=== PATIENT | female | born 2000 ===

== ENCOUNTER 2019-03-10 05:05 | Inpatient (IN) | payer OTHER ==
[2019-03-10] MEDS ORDERED: AMPICILLIN/NS 2 GM/100 ML 2 GM/100 ML BAG IV ONE (05:51)
[2019-03-10] MEDS ORDERED: BRETHINE SUB-Q PRN (05:51)
[2019-03-10] MEDS ORDERED: XYLOCAINE 2% INFILTRATI ONE (05:51)
[2019-03-10] MEDS ORDERED: SUBLIMAZE IV PRN (05:51)
[2019-03-10] MEDS ORDERED: LACTATED RINGERS 1,000 ML IV SCH (06:00)
[2019-03-10] MEDS ORDERED: PITOCin/NS 20 UNIT/1000ML DRIP 20 UNITS/1,000 ML BAG IV SCH (06:00)
--- NOTE | 2019-03-10 06:02 | History and Physical Report ---
History of Present Illness Date of examination: 03/10/19 Date of admission: 03/10/2019 Chief complaint: Leaking of water from vagina. History of present illness: 18 year old presents to L&D complaining of leaking of water from vagina since 04:50 this AM. Fluid clear. No vaginal bleeding. Patient received care at [facility] and records are available. significant for late presentation for care, anemia, and rubella nonimmune. labs are as follows: O+, antibody screen negative, rubella nonimmune, RPR nonreactive, HIV negative, hepatitis B surface antigen negative, chlamydia negative, gonorrhea negative, 1 hour sugar test 98, HSV 1 serology positive, HSV 2 serology negative. No GBS result noted on chart. 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 denies: smoking, alcohol abuse, prescription drug abuse, IV drug use - Obstetrical History Expected Date of Delivery: 03/30/19 Actual Gestation: 37 Week(s) 1 Day(s) : 1 Para: 0 Hx # Term Pregnancies: 0 Number of Pregnancies: 0 Spontaneous Abortions: 0 Induced : 0 Number of Living Children: 0 Medications and Allergies Allergies Allergy/AdvReac Type Severity Reaction Status Date / Time No Known Allergies Allergy Unverified 03/10/19 05:44 Home Medications Medication Instructions Recorded Confirmed Last Taken Type No Known Home Medications [No 03/10/19 03/10/19 Unknown History Reported Home Medications] Active Meds: Active Medications Ephedrine Sulfate (Ephedrine Sulfate) 10 mg IV Q2M PRN PRN Reason: Hypotension Fentanyl (Sublimaze) 100 mcg IV Q2H PRN PRN Reason: Labor Pain Oxytocin/Sodium Chloride (Pitocin/Ns 20 Unit/1000ml Drip) 20 units in 1,000 mls @ 125 mls/hr IV DIRECT SRAVAN Lactated Ringer's (Lactated Ringers) 1,000 mls @ 125 mls/hr IV DIRECT SRAVAN Ampicillin Sodium (Ampicillin/Ns 2 Gm/100 Ml) 2 gm in 100 mls @ 100 mls/hr IV ONCE ONE; Protocol Stop: 03/10/19 06:50 Terbutaline Sulfate (Brethine) 0.25 mg SUB-Q ONCE PRN PRN Reason: Hyperstimulation/Hypertonicity Review of Systems All systems: negative (leaking of water and contractions) - Vital Signs Vital signs: Vital Signs Pulse BP 94 H 119/79 03/10/19 05:49 03/10/19 05:49 Temp Pulse Resp BP Pulse Ox 94 H 119/79 03/10/19 05:49 03/10/19 05:49 - Physical Exam Abdomen: Positive: normal appearance, soft. Negative: distention, tenderness, guarding, rigidity Genitourinary (Female): Positive: normal external genitalia, normal perenium. Negative: perineal/vulvar lesions Vagina: Positive: other (clear fluid) Uterus: Positive: enlarged (s=d) Extremities: Positive: normal. Negative: tenderness, edema - Obstetrical FHR: category 1 Uterine Contraction Monitor Mode: External Cervical Dilatation: 3.5 Cervical Effacement Percentage: 90 station: -3 Uterine Contraction Pattern: Regular Uterine Contraction Intensity: Moderate Results All other labs normal. Assessment and Plan A: at 37 weeks, 1 day gestation. Labor. SROM. GBS unknown. P: Admit. GBS prophylaxis. EFM. Anticipate vaginal .
[2019-03-10] MEDS: LACTATED RINGERS 1,000 ML IV SCH ×2 (06:15→07:36)
[2019-03-10 06:30] LABS: Hematocrit 39.7 % (30.3-42.9); Hemoglobin 13.4 gm/dl (10.1-14.3); Mean Corpuscular HGB Conc 34 % (30-34); Mean Corpuscular Volume 85 fl (79-97); Platelet Count 251 K/mm3 (140-440); Red Blood Count 4.66 M/mm3 (3.65-5.03); Red Cell Distribution Width 13.8 % (13.2-15.2)
[2019-03-10] MEDS ORDERED: NARCAN 2 MG/2 ML IV PRN (09:10)
[2019-03-10] MEDS ORDERED: fentaNYL-BUPIV 2 MCG/ML-0.125% 200 MCG/100 ML BAG EPIDURAL SCH (10:00)
[2019-03-10] MEDS: AMPICILLIN/NS 1 GM/50 ML 1 GM/50 ML BAG IV SCH ×2 (10:09→14:12)
--- NOTE | 2019-03-10 10:50 | Event Note ---
Date: 03/10/19 Brief variable FHR decelerations noted. Moderate FHR variability and normal baseline FHR. IUPC inserted; amnioinfusion ordered. Cervix is now 5.5/100/-1. Fluid remains clear. Patient positioned in lateral position. VSS.
[2019-03-10] MEDS ORDERED: NACL 0.9% 1000 ML 1,000 ML VG SCH (11:00)
--- NOTE | 2019-03-10 12:12 | Event Note ---
Date: 03/10/19 SVE 9/0.
[2019-03-10] MEDS ORDERED: TYLENOL PO PRN (13:58)
[2019-03-10] MEDS ORDERED: MILK OF MAGNESIA PO PRN (14:59)
[2019-03-10] MEDS ORDERED: LANSINOH TP PRN (14:59)
[2019-03-10] MEDS ORDERED: TUCKS PAD TP PRN (14:59)
[2019-03-10] MEDS ORDERED: SODIUM CHLORIDE FLUSH SYRINGE 10 ML IV NR (15:00)
--- NOTE | 2019-03-10 15:20 | Procedure Note ---
OB Delivery Note - Delivery Date of Delivery: 03/10/19 Surgeon: CLAUDY AMADOR Estimated blood loss: 200cc - Vaginal Delivery presentation: vertex Delivery position: OA Intrapartum events: none Delivery induction: none Delivery monitor: external FHT, external uterine, internal uterine Route of delivery: Delivery placenta: spontaneous Delivery cord: 3 umbilical vessels Episiotomy: none Delivery laceration: 2nd degree Delivery repair: vicryl Anesthesia: epidural Delivery comments: Spontaneous vaginal delivery at 14:13 of liveborn female infant weighing 6 lb. 12 oz. over 2nd degree midline perineal/vaginal laceration with apgars of 8/9. Epidural anesthesia. Baby placed immediately skin to skin with mom after . Spontaneous cry and respirations. Baby dried and suctioned with bulb. 3 vessel cord double clamped and cut. Cord blood obtained. Spontaneous delivery of intact placenta and membranes by gillespie mechanism. EBL 200 cc. Pitocin to IV fluids after delivery of placenta. Fundus firm and midline below umbilicus. 2nd degree perineal/vaginal laceration repaired with 2-0 vicryl. No other lacerations noted. Vaginal sweep negative. Sponge count correct. Mother and baby stable in birthing room.
[2019-03-10] MEDS: NORCO 5/325 PO PRN (17:18)
[2019-03-10] MEDS: IBUPROFEN PO SCH (17:18)
[2019-03-10] MEDS ORDERED: DERMOPLAST TP PRN (19:24)
[2019-03-10] MEDS: COLACE PO SCH (22:58)
[2019-03-11 04:18] LABS: Hematocrit 29.6 % (30.3-42.9); Hemoglobin 9.8 gm/dl (10.1-14.3)
[2019-03-11] MEDS: NORCO 5/325 PO PRN (04:44)
[2019-03-11] MEDS: IBUPROFEN PO SCH (05:49)
--- NOTE | 2019-03-11 12:18 | Progress Note ---
Assessment and Plan A: day 1 S/P spontaneous vaginal delivery. Anemia secondary to and blood loss. P: Supplement with iron. Continue current management. Subjective - Subjective Date of service: 03/11/19 Principal diagnosis: day 1 S/P Interval history: day 1 S/P spontaneous vaginal delivery. Doing well. Patient reports small amount of lochia. Voiding without difficulty; ambulating well; tolerating a regular diet without nausea or vomiting. Patient denies headache, chest pain, cough, shortness of breath, abdominal pain, or leg pain. Patient reports: appetite normal, voiding normally, pain well controlled, flatus, ambulating normally, no dizzy ambulation, no nauseated [place]: doing well Objective - Vital Signs Latest vital signs: Vital Signs Temp Pulse Resp BP BP Pulse Ox 03/11/19 08:57 97.9 F 87 20 99/53 99 03/10/19 23:14 98.2 F 99 H 20 108/50 97 03/10/19 19:57 98.8 F 90 20 122/70 96 03/10/19 16:56 97.9 F 93 H 18 130/75 03/10/19 16:15 105 H 96 03/10/19 16:10 102 H 97 03/10/19 16:05 101 H 97 03/10/19 16:00 109 H 98 03/10/19 15:59 104 H 124/75 03/10/19 15:55 105 H 98 03/10/19 15:50 101 H 96 03/10/19 15:45 110 H 97 03/10/19 15:40 101 H 99 03/10/19 15:35 96 H 97 03/10/19 15:30 95 H 97 03/10/19 15:29 97 H 134/76 03/10/19 15:25 104 H 98 03/10/19 15:20 102 H 98 03/10/19 15:15 107 H 97 03/10/19 15:10 112 H 97 03/10/19 15:05 117 H 96 03/10/19 15:00 113 H 127/90 97 03/10/19 14:55 114 H 98 03/10/19 14:50 106 H 98 03/10/19 14:45 110 H 98 03/10/19 14:40 117 H 97 03/10/19 14:35 98.7 F 109 H 97 03/10/19 14:30 120 H 130/63 97 03/10/19 14:25 124 H 98 03/10/19 14:20 118 H 96 03/10/19 14:17 125 H 94 03/10/19 14:15 145 H 95 03/10/19 14:10 136 H 97 03/10/19 14:05 162 H 96 03/10/19 14:01 163 H 93 03/10/19 14:00 100.3 F H 150 H 96 03/10/19 13:55 131 H 96 03/10/19 13:50 118 H 96 03/10/19 13:45 110 H 96 03/10/19 13:40 114 H 97 03/10/19 13:35 114 H 96 03/10/19 13:30 126 H 135/78 95 03/10/19 13:25 102 H 95 03/10/19 13:20 121 H 97 03/10/19 13:15 121 H 95 03/10/19 13:10 116 H 97 03/10/19 13:05 115 H 96 03/10/19 13:00 117 H 120/71 96 03/10/19 12:55 98 H 97 03/10/19 12:50 131 H 96 03/10/19 12:45 123 H 97 03/10/19 12:40 97 H 96 03/10/19 12:35 119 H 96 03/10/19 12:30 79 117/63 96 03/10/19 12:25 78 95 03/10/19 12:20 79 96 03/10/19 12:17 98.7 F 03/10/19 12:15 105 H 97 Intake and Output 03/10/19 03/11/19 03/11/19 23:59 07:59 15:59 Output Total 500 500 Balance -500 -500 Output: Urine 500 500 Void 500 500 Other: Total, Output Amount 500 500 # Voids Void 1 2 - Exam Cardiovascular: Present: Regular rate, Normal S1, Normal S2 Lungs: Present: Clear to auscultation Abdomen: Present: normal appearance, soft, normal bowel sounds. Absent: distention, tenderness, guarding, rigidity Uterus: Present: normal, firm, fundal height below umbilicus. Absent: bogginess, tenderness Extremities: Present: normal. Absent: tenderness, edema - Labs Labs: Abnormal lab results 03/11/19 Range/Units 03:56 Hgb 9.8 L D (10.1-14.3) gm/dl Hct 29.6 L D (30.3-42.9) %
[2019-03-11] MEDS: FEOSOL PO SCH (22:28)
[2019-03-12] MEDS: IBUPROFEN PO SCH (06:16)
--- NOTE | 2019-03-12 09:23 | Progress Note ---
Assessment and Plan - Patient Problems (1) Status post normal vaginal delivery Current Visit: Yes Status: Acute Plan to address problem: PPD 2 - stable Continue routine orders Case Management Consult pending related to lack of Car Seat Discharge to home later today Follow-up at [facility] as needed or in 6 weeks for exam. (2) Anemia due to blood loss, acute Current Visit: Yes Status: Acute Plan to address problem: Asymptomatic Continue iron therapy Subjective - Subjective Date of service: 03/12/19 Principal diagnosis: PPD #2; s/p Interval history: see H&P, Event Notes, OB/Delivery Procedure Note and PP/SET UP INSPECTOR Progress Note Patient reports: appetite normal, voiding normally, pain well controlled, ambulating normally, no dizzy ambulation [place]: doing well Objective - Vital Signs Latest vital signs: Vital Signs Temp Pulse Resp BP BP Pulse Ox 03/12/19 07:35 97.8 F 77 18 120/71 03/12/19 00:38 98.5 F 86 18 102/58 97 03/11/19 17:02 98.1 F 82 20 119/75 98 Intake and Output 03/11/19 03/12/19 03/12/19 23:59 07:59 15:59 Intake Total 360 480 Balance 360 480 Intake: Oral 480 Intake, Free Water 360 Other: Total, Intake Amount 480 # Voids Void 1 - Exam Cardiovascular: Present: Regular rate Lungs: Present: Clear to auscultation, Normal air movement Abdomen: Present: normal appearance, soft Vulva: both: laceration/episiotomy (well approximated) Uterus: Present: normal, firm, fundal height at umbilicus Extremities: Present: normal Comments: scant lochia
[2019-03-12] MEDS: NORCO 5/325 PO PRN (09:25)
[2019-03-12] MEDS: COLACE PO SCH (09:25)
[2019-03-12] MEDS: FEOSOL PO SCH (09:25)
--- NOTE | 2019-03-12 09:32 | Discharge Summary ---
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 Notified:: n/a Primary care physician: ENEDINA MCMAHAN MD Hospitalization Reason for admission: active labor, IUP at term Delivery: Episiotomy: none Laceration: 2nd degree Other procedures: none Discharge diagnosis: IUP at term delivered baby: female Hospital course: Uncomplicated Condition at discharge: Stable Disposition: DC-01 TO HOME OR SELFCARE - Discharge Diagnoses (1) Status post normal vaginal delivery Status: Acute (2) Anemia due to blood loss, acute Status: Acute Comment: Asymptomatic Continue iron therapy Encouraged iron-rich foods Plan - Discharge Medications Prescriptions: Ferrous Sulfate [Feosol 325 MG tab] 325 mg PO BID #60 tablet - Provider Discharge Summary Activity: routine, no sex for 6 weeks, no heavy lifting 4 weeks, no strenuous exercise Diet: routine Instructions: routine Additional instructions: [] Smoking cessation referral if applicable(refer to patient education folder for contact #) [] Refer to [facility] Booklet Call your doctor immediately for: * Fever > 100.5 * Heavy vaginal bleeding ( >1 pad per hour) * Severe persistent headache * Shortness of breath * Reddened, hot, painful area to leg or breast * Drainage or odor from incision. * Keep incision clean and dry at all times and follow doctor's instructions regarding bathing/showering - Follow up plan Follow up: ENEDINA MCMAHAN MD [Primary Care Provider] - 6 Weeks (Follow up at [facility] as needed or in 6 weeks for exam)
[2019-03-12 14:15] VITALS: BP 116/70
== END 2019-03-12 14:25 | disposition home or self-care (01) | DRG 806 ==
LOC: LD 05:05 → TRG 05:05 → LD 05:06 → TRG 15:20 → OB 17:09
PROVIDERS: ADMIT Obstetrics & Gynecology; ATTEND Obstetrics & Gynecology
PROC: 10E0XZZ Delivery of Products of Conception, External Approach (ICD-10-PCS; principal; 2019-03-10)
PROC: 0KQM0ZZ Repair Perineum Muscle, Open Approach (ICD-10-PCS; 2019-03-10)
PROC: 10H07YZ Insertion of Other Device into Products of Conception, Via Natural or Artificial Opening (ICD-10-PCS; 2019-03-10)
PROC: 3E0E7GC Introduction of Other Therapeutic Substance into Products of Conception, Via Natural or Artificial Opening (ICD-10-PCS; 2019-03-10)
PROC: 3E0R3BZ Introduction of Anesthetic Agent into Spinal Canal, Percutaneous Approach (ICD-10-PCS; 2019-03-10)
PROC: 00HU33Z Insertion of Infusion Device into Spinal Canal, Percutaneous Approach (ICD-10-PCS; 2019-03-10)
DX: O76 Abnormality in fetal heart rate and rhythm complicating labor and delivery (principal); D62 Acute posthemorrhagic anemia; Z37.0 Single live birth; Z3A.37 37 weeks gestation of pregnancy; O90.81 Anemia of the puerperium; O70.1 Second degree perineal laceration during delivery
CPT/HCPCS: 36415; 85014; 85018; 85027; 86592; 86706; 86803; 86850; 86900; 86901; 87806; 88307; G0378; J0290; J2590; J3010; J7030; J7120